=== PATIENT | male | born 1990 | race Caucasian/White ===

== ENCOUNTER 2020-11-09 18:02 | Emergency (ER) | payer SELFPAY ==
[~2020-11-09] VITALS: Ht 177.8 cm; Wt 82.0 kg
--- NOTE | 2020-11-09 18:35 | NUR ---
Pt off unit to [place]. 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
--- NOTE | 2020-11-09 18:45 | NUR ---
Pt noted coming back from [place] at this time. Report to JOHN Huerta stating this RN has not laid eyes on pt yet but has been seen by MD and just returned from [place]. Triage note read together. RN aware of need for RN assessments to be done still.
[2020-11-09 20:25] VITALS: BP 130/89
== END 2020-11-09 21:18 | disposition home or self-care (01) ==
LOC: ED 19:00
DX: S02.0XXA Fracture of vault of skull, initial encounter for closed fracture (principal); Z87.891 Personal history of nicotine dependence; Y04.0XXA Assault by unarmed brawl or fight, initial encounter; Y93.89 Activity, other specified; Y92.410 Unspecified street and highway as the place of occurrence of the external cause; Y99.8 Other external cause status
CPT/HCPCS: 70450; 70486; 99285